=== PATIENT | female | born 1995 | race Hispanic/Latino ===

== ENCOUNTER 2024-04-05 19:45 | Emergency (ER) | payer SELFPAY ==
[~2024-04-05] VITALS: Ht 152.4 cm; Wt 56.7 kg
[2024-04-05 20:24] LABS: RAPID GROUP A STREP positive (NEGATIVE)
[2024-04-05 20:26] LABS: INFLUENZA TYPE A Negative For Type A (NEGATIVE); INFLUENZA TYPE B Negative For Type B (NEGATIVE)
[2024-04-05 20:28] LABS: SARS-CoV-2, RNA, NAAT NEGATIVE SARS CoV-2 (NEGATIVE)
[2024-04-05] MEDS ORDERED: acetaMINOPHEN 500 MG TABLET PO ONE (20:30)
[2024-04-05] MEDS ORDERED: OFLO5DRO21 OTIC (20:49)
[2024-04-05] MEDS ORDERED: ACET-66 PO (20:49)
[2024-04-05] MEDS ORDERED: AMOX1TAB16 PO (20:49)
[2024-04-05 22:58] VITALS: BP 111/68; PULSE 81; RESP 16; TEMP 98; O2SAT 100
== END 2024-04-05 23:07 | disposition home or self-care (01) ==
LOC: EDH 19:45
DX: J02.0 Streptococcal pharyngitis (principal); H60.91 Unspecified otitis externa, right ear; R50.9 Fever, unspecified; Z20.822 Contact with and (suspected) exposure to COVID-19
CPT/HCPCS: 87635; 87804; 87880